=== PATIENT | female | born 1940 | race Caucasian/White ===

== ENCOUNTER → 2017-12-22 13:48 | Outpatient (CLI) | payer MEDICARE, MEDICAID, SELFPAY ==
--- NOTE | 2017-12-22 13:55 | CT_ITS ---
STUDY: CT ABDOMEN WITHOUT CONTRAST REASON FOR EXAM: Female, 77 years old. Follow-up adrenal adenoma RADIATION DOSAGE (If Supplied By Facility): CTDIvol = ( 8.08 ) mGy, DLP = ( 216.66 ) mGycm TECHNIQUE: Transaxial images were obtained without intravenous contrast, and without oral contrast. Sagittal and coronal images were reconstructed. Individualized dose optimization techniques were used for this CT. COMPARISON: CT scan abdomen and pelvis August 21, 2015 FINDINGS: There are a few emphysematous blebs within the lung bases. There are coronary calcifications. The liver appears somewhat hyperdense. Normal gallbladder and extrahepatic biliary system. There are multiple benign calcified granulomata of the spleen. Normal pancreas. There is an enlarged low attenuating appearance of the left adrenal gland that measures 3.3 x 1.6 cm. This is stable in appearance when compared to prior study. There is mild thickening of the right adrenal gland also stable since prior study. There is mild right renal pelviectasis. There is focal stable left renal cortical lobulation with cortical thinning which may represent prior infection or infarction. Normal visualized stomach. Normal small intestine. There is moderate stool in the colon. There is non-visualization of the appendix. Aorta is partially calcified. The aorta at the hiatus measures 2.5 x 2.8 cm. The infrarenal aorta measures 2.2 x 2.2 cm. Aorta above the bifurcation measures 1.3 x 1.2 cm. There is calcification of the bilateral external iliac arteries. Normal inferior vena cava. There are multiple stable small varices suggested near the left adrenal gland. Normal abdominal wall. There is vertebroplasty material at L1 which is extended into the disc space at L1-L2. There is at least 50% loss of height of the underside of the L2 vertebral body. The bones are osteopenic. There is radiopaque material extending into the left lateral recess causing moderate left neural foraminal narrowing at L1-L2. There is effacement of the thecal sac. At the level of L203 there is a broad disc osteophyte complex with moderate neural foramina narrowing facet arthropathy. At L3-L4 there is a broad disc bulge facet arthropathy mild to moderate neural foramina narrowing is significant central stenosis. There is facet arthropathy L4-L5 with minimal neural foraminal narrowing. There is facet arthropathy at the level of L5-S1 mild to moderate neural foramina narrowing. CT/Abdomen without IV Contrast IMPRESSION: Mild emphysematous change. Coronary artery calcification Nonspecific slightly hyperdense appearance of the liver which can be associated possible amiodarone therapy . Evidence of old granulomatous disease. Focal scarring cortical thinning in the left kidney stable since prior study. Stable left adrenal gland. The size of the left adrenal gland is large for adrenal adenoma. However Given stability over time this may represent an atypical adenoma. Degenerative changes of thoracolumbar spine. There is been a vertebroplasty at L1 with radiopaque material extending into the canal and left neural foramen with mild to moderate neural foramina narrowing and central stenosis. Electronically Signed: Christina Washington MD at 23:51 EST Tel , Service support ,
--- NOTE | 2017-12-22 14:35 | US_ITS ---
STUDY: THYROID ULTRASOUND REASON FOR EXAM: Female, 77 years old. Nodules TECHNIQUE: Ultrasound evaluation of the thyroid was performed with real-time and static hanna-scale imaging. COMPARISON: None. FINDINGS: RIGHT LOBE: The right lobe of the thyroid gland measures 4.0 x 1.4 x 1.9 cm. There is a homogeneous echotexture. There are no demonstrated solid, cystic or complex lesions. LEFT LOBE: The left lobe of the thyroid gland measures 3.7 x 1.3 x 1.6 cm. There is a homogeneous echotexture. The 2 small nodules. One superior circumscribed measuring 7 x 4 x 2 mm. One hypoechoic possible hyperechoic center measuring 4 x 3 x 3 mm. May represent a small peripheral lymph node. ISTHMUS: The isthmus measures 2 . The regional lymph nodes are normal. US/Thyroid IMPRESSION: Within normal limits in volume thyroid for patient's age and gender. Small probably benign nodules in the left thyroid for which a follow-up in 6 months is suggested to ensure stability. Electronically Signed: Christina Washington MD at 18:22 EST Tel , Service support ,
== END ==
PROVIDERS: Family Provider Family Medicine; PCP Family Medicine; Referring Provider Family Medicine; Visit Provider Family Medicine
DX: E04.1 Nontoxic single thyroid nodule (principal); D35.00 Benign neoplasm of unspecified adrenal gland
CPT/HCPCS: 74150; 76536